=== PATIENT | male | born 1970 | race Caucasian/White ===

== ENCOUNTER 2022-09-20 11:45 | Outpatient (CLI) | payer OTHER, SELFPAY ==
--- NOTE | 2022-09-20 12:30 | W.ANESCHARGE ---
Anesthesia Charges Start Date/Time Anesthesia Start Date: 09/20/22 Anesthesia Start Time: 13:00 Stop Date/Time Anesthesia Stop Date: 09/20/22 Anesthesia Stop Time: 13:42
--- NOTE | 2022-09-20 13:47 | W.ANESCHARGE ---
Anesthesia Charges Start Date/Time Anesthesia Start Date: 09/20/22 Anesthesia Start Time: 13:00 Stop Date/Time Anesthesia Stop Date: 09/20/22 Anesthesia Stop Time: 13:42
== END 2022-09-20 11:46 | disposition home or self-care (01) ==
LOC: OP CLINIC 11:46
PROVIDERS: PCP Family Medicine; Visit Provider Surgery
DX: Z12.11 Encounter for screening for malignant neoplasm of colon (principal); K63.5 Polyp of colon; K62.1 Rectal polyp; K57.30 Diverticulosis of large intestine without perforation or abscess without bleeding; Z80.0 Family history of malignant neoplasm of digestive organs
CPT/HCPCS: 00811; 45385; 88305; J2704

== ENCOUNTER 2024-04-13 08:24 | Outpatient (CLI) | payer BC, SELFPAY | END 2024-04-13 08:25 | disposition home or self-care (01) | LOC: NFLDREF 04-17 14:48 | PROVIDERS: PCP Family Medicine; Referring Provider Family Medicine; Visit Provider Family Medicine | DX: Z00.00 Encounter for general adult medical examination without abnormal findings (principal); E11.9 Type 2 diabetes mellitus without complications; E78.00 Pure hypercholesterolemia, unspecified; I10 Essential (primary) hypertension; E66.9 Obesity, unspecified; Z12.5 Encounter for screening for malignant neoplasm of prostate | CPT/HCPCS: 80053; 80061; 82043; 82570; G0103 ==

== ENCOUNTER 2025-04-19 08:15 | Outpatient (CLI) | payer BC, SELFPAY | END 2025-04-19 08:16 | disposition home or self-care (01) | LOC: NFLDREF 04-25 13:40 | PROVIDERS: PCP Family Medicine; Referring Provider Family Medicine; Visit Provider Family Medicine | DX: E11.9 Type 2 diabetes mellitus without complications (principal); Z00.00 Encounter for general adult medical examination without abnormal findings | CPT/HCPCS: 80053; 80061; 82043; 82570 ==